=== PATIENT | male | born 1965 | race Two or more races ===

== ENCOUNTER 2020-09-28 15:01 | Emergency (ER) | payer OTHER ==
[~2020-09-28] VITALS: Ht 162.6 cm; Wt 85.0 kg
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
[2020-09-28 15:54] LABS: BASO % 0 % (0-3); EOS % 1 % (0-3); HEMATOCRIT 34.1 % (39.0-53.0); HEMOGLOBIN 11.7 g/dL (13.0-17.5); LYMPH # 0.8 x10^3/uL (1.0-4.8); LYMPH % 16 % (24-48); MEAN CORPUSCULAR HEMOGLOBIN 32 pg (25-35); MEAN CORPUSCULAR HGB CONC 34 g/dL (31-37); MEAN CORPUSCULAR VOLUME 95 fL (79-100); MONO # 0.4 x10^3/uL (0.0-1.1); MONO % 8 % (0-9); NEUT # 3.5 x10^3/uL (1.8-7.7); NEUT % 75 % (31-73); PLATELET COUNT 404 x10^3/uL (140-400); RED BLOOD COUNT 3.61 x10^6/uL (4.30-5.70); RED CELL DISTRIBUTION WIDTH 13.7 % (11.5-14.5); WHITE BLOOD COUNT 4.7 x10^3/uL (4.0-11.0)
[2020-09-28] MEDS ORDERED: HYDROmorphone 2 MG/ML VIAL IVP ONE (16:15)
[2020-09-28 16:18] LABS: GFR 77.3; POTASSIUM 3.8 mmol/L (3.5-5.1)
[2020-09-28 16:21] LABS: ALBUMIN 2.8 g/dL (3.4-5.0); DIRECT BILIRUBIN 0.1 mg/dL (0.0-0.2); TOTAL BILIRUBIN 0.3 mg/dL (0.2-1.0); TOTAL PROTEIN 6.9 g/dL (6.4-8.2)
[2020-09-28] MEDS ORDERED: CONTRAST GIVEN. MC PRN (16:45)
[2020-09-28] MEDS ORDERED: IOHEXOL 300 MG/ML 100ML VIAL. IV ONE (16:45)
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
[2020-09-28] MEDS ORDERED: CEPH500C PO (18:26)
[2020-09-28] MEDS ORDERED: SULF1TAB24 PO (18:26)
[2020-09-28] MEDS ORDERED: HYDROcodone/APAP 10/325 1 TAB TABLET PO ONE (20:45)
[2020-09-28 20:52] LABS: BILIRUBIN,URINE NEGATIVE (NEG); CLARITY,URINE CLEAR; COLOR,URINE YELLOW; NITRITE,URINE NEGATIVE (NEG); PH,URINE 5.5 (<5.0-8.0); PROTEIN,URINE NEGATIVE (NEG-TRACE); UROBILINOGEN,URINE 0.2 mg/dL (0.2 mg/dL)
[2020-09-28 20:58] LABS: BACTERIA,URINE 0 /HPF (0-FEW); RBC,URINE 0 /HPF (0-2); WBC,URINE OCC /HPF (0-4)
[2020-09-28 20:59] LABS: BARBITURATES NEG (NEG); BENZODIAZEPINES POS (NEG); CANNABINOIDS NEG (NEG); COCAINE NEG (NEG); METHADONE NEG (NEG); OPIATES POS (NEG); PHENCYCLIDINE NEG (NEG)
[2020-09-28 21:03] LABS: AMPHETAMINE/METHAMPHETAMINE NEG (NEG)
[2020-09-28 23:04] VITALS: BP 114/72
== END 2020-09-28 23:04 | disposition home or self-care (01) ==
LOC: ER 15:01
DX: U07.1 COVID-19 (principal); L03.311 Cellulitis of abdominal wall; R74.01 Elevation of levels of liver transaminase levels; D64.9 Anemia, unspecified; Z87.891 Personal history of nicotine dependence
CPT/HCPCS: 36415; 74177; 80048; 80076; 80307; 81001; 82550; 83605; 83690; 85025; 87040; 96374; 99285; J1170; Q9967

== ENCOUNTER 2021-04-20 18:06 | Emergency (ER) | payer SELFPAY ==
[~2021-04-20] VITALS: Ht 167.6 cm; Wt 77.2 kg
[~2021-04-20 18:06] MED LIST: CEPH500C PO; SULF1TAB24 PO
[2021-04-20 20:30] VITALS: BP 128/82
== END 2021-04-20 21:30 | disposition left against medical advice (07) ==
LOC: ER 18:06
DX: R07.89 Other chest pain (principal); M54.9 Dorsalgia, unspecified; Z53.21 Procedure and treatment not carried out due to patient leaving prior to being seen by health care provider